=== PATIENT | male | born 1985 | race Caucasian/White ===

== ENCOUNTER 2022-12-04 11:06 | Emergency (ER) | payer OTHER ==
--- NOTE | 2022-12-04 11:25 | ERPHSYRPT ---
- History of Present Illness Time Seen by Provider: 12/04/22 11:20 Physician History: This is a 37-year-old white male patient who has complaints of numbness of his hands and feet. He also feels a little weak. He has no chest pain. Has no shortness of breath. He denies fever. He denies cough. Symptoms have been pr esent for 2 days. He has no known exposure to individuals with similar symptoms. He has never had anything like this before. He denies medication use. He denies illicit drug use. He denies alcohol use. He denies head injury. He does not have a headache. He denies neck pain. Timing/Duration: day(s) (2) Severity: mild Associated Symptoms: denies symptoms Allergies/Adverse Reactions: Penicillins Allergy (Verified 12/04/22 11:40) Travel Risk - International Travel Have you traveled outside of the country in past 3 weeks: No - Coronavirus Screening Are you exhibiting any of the following symptoms?: No Close contact with a COVID-19 positive Pt in past 14-21 Days: No - Review of Systems Constitutional: Weakness (Bilateral upper and lower extremity mild weakness) Eyes: No Symptoms Ears, Nose, & Throat: No Symptoms Respiratory: No Symptoms Cardiac: No Symptoms Abdominal/Gastrointestinal: No Symptoms Genitourinary Symptoms: No Symptoms Musculoskeletal: No Symptoms Skin: No Symptoms Neurological: Other (Mild numbness to hands and feet bilaterally), No Dizziness, No Headache Psychological: No Symptoms Endocrine: No Symptoms Hematologic/Lymphatic: No Symptoms Immunological/Allergic: No Symptoms All Other Systems: Reviewed and Negative - Past Medical History Pertinent Past Medical History: No - Past Surgical History Past Surgical History: No - Nursing Vital Signs Nursing Vital Signs: Initial Vital Signs Temperature 97.6 F 12/04/22 11:41 Pulse Rate 72 12/04/22 11:41 Respiratory Rate 18 12/04/22 11:41 Blood Pressure 138/90 12/04/22 11:41 O2 Sat by Pulse Oximetry 100 12/04/22 11:41 Pain Scale Pain Intensity 0 - Physical Exam General Appearance: no apparent distress, alert, anxiety Eye Exam: PERRL/EOMI, eyes nml inspection Ears, Nose, Throat Exam: normal ENT inspection, moist mucous membranes Neck Exam: normal inspection, non-tender, supple, full range of motion Respiratory Exam: normal breath sounds, lungs clear, airway intact, No chest tenderness, No respiratory distress Cardiovascular Exam: regular rate/rhythm, normal heart sounds, normal peripheral pulses Gastrointestinal/Abdomen Exam: soft, normal bowel sounds, No tenderness Rectal Exam: not done Back Exam: normal inspection, normal range of motion, No CVA tenderness, No vertebral tenderness Extremity Exam: normal inspection, normal range of motion, pelvis stable Neurologic Exam: alert, oriented x 3, cooperative, ict trainer II-XII nml as tested, normal mood/affect, nml cerebellar function, nml station & gait, sensation nml Skin Exam: normal color, warm, dry Lymphatic Exam: No adenopathy SpO2 Interpretation: normal O2 Delivery: Room Air - Course Nursing assessment & vital signs reviewed: Yes EKG Interpreted by Me: RATE (69), Sinus Rhythm, NORMAL AXIS, NORMAL INTERVALS, NORMAL QRS, NORMAL ST-T, Other (No acute ischemic changes on today's twelve-lead EKG) Ordered Tests: Active Orders 24 hr Category Date Time Status IV Insertion STAT Care 12/04/22 12:10 Active CBC W DIFF Stat Lab 12/04/22 11:50 Completed CMP Stat Lab 12/04/22 11:50 Completed MAG [MAGNESIUM] Stat Lab 12/04/22 11:50 Completed T4 (Thyroxine) Stat Lab 12/04/22 11:50 Completed TSH [TSH, 3RD Generation] Stat Lab 12/04/22 11:50 Completed Urine Triage Profile Stat Lab 12/04/22 12:10 Completed Medication Summary Discontinued Medications Generic Name Dose Route Start Last Admin Trade Name Suzanne PRN Reason Stop Dose Admin Sodium Chloride 1,000 mls @ 999 mls/hr 12/04/22 12:10 12/04/22 13:28 Sodium Chloride 0.9% 1000 Ml IV 12/04/22 13:10 Infused .Q1H1M STA Infusion Sodium Chloride Confirm 12/04/22 12:14 Sodium Chloride 0.9% 1000 Ml Administered 12/04/22 12:15 Dose 1,000 mls @ ud .ROUTE .[facility]-MED ONE Lab/Rad Data: Laboratory Result Diagrams 12/04/22 11:50 12/04/22 11:50 Laboratory Results 12/04/22 12/04/22 12/04/22 Range/Units 12:15 12:10 12:10 WBC (4.0-10.5) x10^3/uL RBC (4.1-5.6) x10^6/uL Hgb (12.5-18.0) g/dL Hct (42-50) % MCV (78-100) fL MCH (26-32) pg MCHC (32-36) g/dL RDW (11.5-14.0) % Plt Count (150-450) x10^3/uL MPV (7.5-11.0) fL Gran % (36.0-66.0) % Immature Gran % (Auto) (0.00-0.4) % Nucleat RBC Rel Count (0.00-0.1) % Eos # (Auto) (0-0.5) x10^3/uL Immature Gran # (Auto) (0.00-0.03) x10^3u/L Absolute Lymphs (auto) (1.0-4.6) x10^3/uL Absolute Monos (auto) (0.0-1.3) x10^3/uL Absolute Nucleated RBC (0.00-0.01) x10^3u/L Lymphocytes % (24.0-44.0) % Monocytes % (0.0-12.0) % Eosinophils % (0.00-5.0) % Basophils % (0.0-0.4) % Absolute Granulocytes (1.4-6.9) x10^3/uL Basophils # (0-0.4) x10^3/uL Sodium (137-145) mmol/L Potassium (3.5-5.1) mmol/L Chloride (98-107) mmol/L Carbon Dioxide (22-30) mmol/L Anion Gap (5-15) MEQ/L BUN (9-20) mg/dL Creatinine (0.66-1.25) mg/dL Estimated GFR ML/MIN Glucose (74-106) mg/dL Calcium (8.4-10.2) mg/dL Magnesium (1.6-2.3) mg/dL Total Bilirubin (0.2-1.3) mg/dL AST (17-59) U/L ALT (0-50) U/L Alkaline Phosphatase (38-126) U/L Serum Total Protein (6.3-8.2) g/dL Albumin (3.5-5.0) g/dL Thyroxine (T4) (5.53-10.96) ug/dL TSH 3rd Generation (0.47-4.68) mIU/L Urine Color YELLOW (YELLOW) Urine Appearance CLEAR (CLEAR) Urine pH 7.0 (5-6) Ur Specific Ignacio 1.015 (1.005-1.025) Urine Protein Cancelled POC Urine Protein Conf NEGATIVE (Negative) Urine Glucose (UA) Cancelled Urine Ketones NEGATIVE (NEGATIVE) Urine Blood Cancelled Urine Nitrite NEGATIVE (NEGATIVE) Urine Bilirubin NEGATIVE (NEGATIVE) Urine Urobilinogen 0.2 (0-1) mg/dL Ur Leukocyte Esterase Cancelled Urine Leukocytes NEGATIVE (NEGATIVE) U Hyaline Cast (Auto) NONE SEEN (0-2) /LPF Urine RBC NEGATIVE (0-5) Collin/ul Urine Microscopic RBC 0-2 (0-5) /HPF Urine Microscopic WBC 0-2 (0-5) /HPF Ur Epithelial Cells None Seen (None Seen) /HPF Urine Bacteria None Seen (None Seen) /HPF Urine Culture Reflexed NO (NO) Urine Glucose NEGATIVE (NEGATIVE) mg/dL Urine Opiates Level NEGATIVE (NEGATIVE) Ur Methadone NEGATIVE (NEGATIVE) Urine Barbiturates NEGATIVE (NEGATIVE) Ur Phencyclidine (PCP) NEGATIVE (NEGATIVE) Urine Amphetamine NEGATIVE (NEGATIVE) U Benzodiazepine Level NEGATIVE (NEGATIVE) Urine Cocaine NEGATIVE (NEGATIVE) Urine Marijuana (THC) NEGATIVE (NEGATIVE) Influenza Type A Ag NEGATIVE (NEGATIVE) Influenza Type B Ag NEGATIVE (NEGATIVE) RSV (PCR) NEGATIVE (NEGATIVE) SARS-CoV-2 (PCR) NEGATIVE (NEGATIVE) 12/04/22 12/04/22 12/04/22 Range/Units 11:50 11:50 11:50 WBC 14.8 H (4.0-10.5) x10^3/uL RBC 5.06 (4.1-5.6) x10^6/uL Hgb 15.3 (12.5-18.0) g/dL Hct 46.3 (42-50) % MCV 91.5 (78-100) fL MCH 30.2 (26-32) pg MCHC 33.0 (32-36) g/dL RDW 12.5 (11.5-14.0) % Plt Count 349 (150-450) x10^3/uL MPV 9.8 (7.5-11.0) fL Gran % 72.2 H (36.0-66.0) % Immature Gran % (Auto) 0.5 H (0.00-0.4) % Nucleat RBC Rel Count 0.0 (0.00-0.1) % Eos # (Auto) 0.70 H (0-0.5) x10^3/uL Immature Gran # (Auto) 0.07 H (0.00-0.03) x10^3u/L Absolute Lymphs (auto) 2.77 (1.0-4.6) x10^3/uL Absolute Monos (auto) 0.47 (0.0-1.3) x10^3/uL Absolute Nucleated RBC 0.00 (0.00-0.01) x10^3u/L Lymphocytes % 18.7 L (24.0-44.0) % Monocytes % 3.2 (0.0-12.0) % Eosinophils % 4.7 (0.00-5.0) % Basophils % 0.7 (0.0-0.4) % Absolute Granulocytes 10.70 H (1.4-6.9) x10^3/uL Basophils # 0.10 (0-0.4) x10^3/uL Sodium 142 (137-145) mmol/L Potassium 4.4 (3.5-5.1) mmol/L Chloride 108 H (98-107) mmol/L Carbon Dioxide 21 L (22-30) mmol/L Anion Gap 17.1 H (5-15) MEQ/L BUN 10 (9-20) mg/dL Creatinine 0.81 (0.66-1.25) mg/dL Estimated GFR > 60.0 ML/MIN Glucose 170 H (74-106) mg/dL Calcium 9.4 (8.4-10.2) mg/dL Magnesium 1.9 (1.6-2.3) mg/dL Total Bilirubin 0.50 (0.2-1.3) mg/dL AST 22 (17-59) U/L ALT 21 (0-50) U/L Alkaline Phosphatase 75 (38-126) U/L Serum Total Protein 7.9 (6.3-8.2) g/dL Albumin 4.8 (3.5-5.0) g/dL Thyroxine (T4) 10.1 (5.53-10.96) ug/dL TSH 3rd Generation 0.535 (0.47-4.68) mIU/L Urine Color (YELLOW) Urine Appearance (CLEAR) Urine pH (5-6) Ur Specific Ignacio (1.005-1.025) Urine Protein POC Urine Protein Conf (Negative) Urine Glucose (UA) Urine Ketones (NEGATIVE) Urine Blood Urine Nitrite (NEGATIVE) Urine Bilirubin (NEGATIVE) Urine Urobilinogen (0-1) mg/dL Ur Leukocyte Esterase Urine Leukocytes (NEGATIVE) U Hyaline Cast (Auto) (0-2) /LPF Urine RBC (0-5) Collin/ul Urine Microscopic RBC (0-5) /HPF Urine Microscopic WBC (0-5) /HPF Ur Epithelial Cells (None Seen) /HPF Urine Bacteria (None Seen) /HPF Urine Culture Reflexed (NO) Urine Glucose (NEGATIVE) mg/dL Urine Opiates Level (NEGATIVE) Ur Methadone (NEGATIVE) Urine Barbiturates (NEGATIVE) Ur Phencyclidine (PCP) (NEGATIVE) Urine Amphetamine (NEGATIVE) U Benzodiazepine Level (NEGATIVE) Urine Cocaine (NEGATIVE) Urine Marijuana (THC) (NEGATIVE) Influenza Type A Ag (NEGATIVE) Influenza Type B Ag (NEGATIVE) RSV (PCR) (NEGATIVE) SARS-CoV-2 (PCR) (NEGATIVE) - Progress Progress: unchanged Progress Note: 12/04/22 13:31 This patient's medical issue is 1 of moderate complexity. The level of complexity and the work-up performed is based on review of the patient's past medical history, review the patient's medication list, review of the patient's drug allergy list, history of present illness and physical findings on examination. The work-up in this patient includes placement of intravenous line, infusion of normal saline solution, twelve-lead EKG, urinalysis, urine drug screen, CBC, CMP. I reviewed the results of the work-up. The patient does have leukocytosis of unknown cause. There is no evidence of skin infection, patient denies cough. Patient denies fever. He has no abdominal pain. We will treat his leukocytosis with an antibiotic for now. Patient can use Tylenol and ibuprofen for any aches and pains and fever control. Patient is to call his primary care provider today to make arranges for follow-up appointment in the next 3 to 5 days. Counseled pt/family regarding: lab results, diagnosis, need for follow-up Medical Desision Making - Diagnostic Testing Diagnostic test were ordered, analyzed, and reviewed by me: Yes - Risk of complications The pt has a mod risk of morbidity or mortality based on: Need for prescription drug management - Departure Departure Disposition: Home Clinical Impression: Numbness and tingling in both hands, Numbness and tingling of both feet, Leukocytosis Condition: Stable Critical Care Time: No Referrals: CLINTON GAMBIN[facility] [employer] DIRECTOR [Primary Care Provider] - Follow up/PCP as directed Additional Instructions: Drink plenty of fluids. Take your antibiotics as prescribed. Use Tylenol and ibuprofen for pain and fever control. Call your primary care doctor today to make arranges for follow-up appointment in the next 3 to 5 days. Prescriptions: Ciprofloxacin [Cipro 500 MG] 500 mg PO BID #14 tablet
[2022-12-04 11:55] VITALS: TEMP 97.6
[2022-12-04] MEDS ORDERED: Sodium Chloride 0.9% 1000 ML 1,000 ML IV STA (12:10)
[2022-12-04] MEDS ORDERED: Sodium Chloride 0.9% 1000 ML 1,000 ML ONE (12:14)
[2022-12-04 12:23] LABS: BASOPHIL % 0.7 % (0.0-0.4); Eosinophil % 4.7 % (0.00-5.0); Hematocrit 46.3 % (42-50); Hemoglobin 15.3 g/dL (12.5-18.0); IMMATURE GRAN # 0.07 x10^3u/L (0.00-0.03); IMMATURE GRAN % 0.5 % (0.00-0.4); Lymphocyte (Absolute #) 2.77 x10^3/uL (1.0-4.6); Lymphocytes % 18.7 % (24.0-44.0); Mean Cell Volume 91.5 fL (78-100); Mean Corpuscular Hemoglobin 30.2 pg (26-32); Mean Platelet Volume 9.8 fL (7.5-11.0); Monocyte (Absolute #) 0.47 x10^3/uL (0.0-1.3); Monocytes % 3.2 % (0.0-12.0); Neutrophil % 72.2 % (36.0-66.0); Platelet Count 349 x10^3/uL (150-450); Red Blood Count 5.06 x10^6/uL (4.1-5.6); Red Cell Distribution Width 12.5 % (11.5-14.0); White Blood Count 14.8 x10^3/uL (4.0-10.5)
[2022-12-04 12:41] LABS: ALBUMIN 4.8 g/dL (3.5-5.0); ALKALINE PHOSPHATASE 75 U/L (38-126); ANION GAP 17.1 MEQ/L (5-15); BLOOD UREA NITROGEN 10 mg/dL (9-20); CHLORIDE 108 mmol/L (98-107); Calcium 9.4 mg/dL (8.4-10.2); Carbon Dioxide 21 mmol/L (22-30); Creatinine 1 0.81 mg/dL (0.66-1.25); EST GLOMERULAR FILTRATION RATE > 60.0 ML/MIN; Glucose 170 mg/dL (74-106); MAGNESIUM 1.9 mg/dL (1.6-2.3); Potassium 4.4 mmol/L (3.5-5.1); SGOT/AST 22 U/L (17-59); SGPT/ALT 21 U/L (0-50); SODIUM 142 mmol/L (137-145); Total Protein 7.9 g/dL (6.3-8.2)
[2022-12-04 13:08] LABS: Appearance CLEAR (CLEAR); Bilirubin NEGATIVE (NEGATIVE); Glucose NEGATIVE (NEGATIVE)
[2022-12-04 13:09] LABS: Ketones NEGATIVE (NEGATIVE); Nitrite NEGATIVE (NEGATIVE); Protein,Urine Dip NEGATIVE (Negative); RBC NEGATIVE Ery/ul (0-5); Specific Gravity 1.015 (1.005-1.025); Urobilinogen 0.2 mg/dL (0-1)
[2022-12-04 13:12] LABS: T4 (Thyroxine) 10.1 ug/dL (5.53-10.96); TSH, 3RD Generation 0.535 mIU/L (0.47-4.68)
[2022-12-04 13:13] LABS: INFLUENZA A NEGATIVE (NEGATIVE); INFLUENZA B NEGATIVE (NEGATIVE); RESPIRATORY SYNCTIAL VIRUS NEGATIVE (NEGATIVE); SARS-CoV-2 Xpert Express NEGATIVE (NEGATIVE)
[2022-12-04 13:19] LABS: Bacteria None Seen /HPF (None Seen); Epithelial Cells None Seen /HPF (None Seen); Hyaline Casts NONE SEEN /LPF (0-2); RBC 0-2 /HPF (0-5); WBC 0-2 /HPF (0-5)
[2022-12-04 13:21] LABS: ADD URINE CULTURE? NO (NO)
[2022-12-04 13:53] VITALS: RESP 16
[2022-12-04 14:06] LABS: Amphetamine,Urine NEGATIVE (NEGATIVE); Barbiturate,Urine NEGATIVE (NEGATIVE); Benzodiazepine,Urine NEGATIVE (NEGATIVE); Cocaine,Urine NEGATIVE (NEGATIVE); Methadone,Urine NEGATIVE (NEGATIVE); Opiate,Urine NEGATIVE (NEGATIVE); PCP,Urine NEGATIVE (NEGATIVE); THC,Urine NEGATIVE (NEGATIVE)
[2022-12-04 14:28] VITALS: BP 137/89; PULSE 72; O2SAT 98
== END 2022-12-04 14:32 | disposition home or self-care (01) ==
LOC: ED 11:06
DX: R20.2 Paresthesia of skin (principal); D72.829 Elevated white blood cell count, unspecified
CPT/HCPCS: 0241U; 36000; 36415; 80053; 80307; 81015; 83735; 84436; 84443; 85025; 96360; 99284

== ENCOUNTER 2025-01-09 12:15 | Emergency (ER) | payer OTHER ==
[2025-01-09 12:29] VITALS: TEMP 98.3
--- NOTE | 2025-01-09 12:30 | ERPHSYRPT ---
- History of Present Illness Time Seen by Provider: 01/09/25 12:20 Source: patient Physician History: This 39-year-old male states he has been having episodes of shortness of breath for the past month. He states that occasionally he gets pain in his left anterior tibia with ankle swelling which is not occurring today. He denies any chest pain. No cough. No fever or chills. He is not a smoker. Denies asthma or COPD. No history of CHF. No personal or family history of thromboembolic disease. Patient currently has mild shortness of breath. He is around a lot of "mold" at home and work. Allergies/Adverse Reactions: Penicillins Allergy (Verified 12/04/22 11:40) Hx Tetanus, Diphtheria Vaccination/Date Given: Yes Hx Influenza Vaccination/Date Given: No Hx Pneumococcal Vaccination/Date Given: No - Review of Systems All Other Systems: Reviewed and Negative (As per HPI otherwise negative) - Past Medical History Pertinent Past Medical History: No - Past Surgical History Past Surgical History: No - Social History Smoking Status: Current every day smoker How long have you smoked: 23 years Exposure to second hand smoke: Yes Drug Use: none Patient Lives Alone: No - Nursing Vital Signs Nursing Vital Signs: Initial Vital Signs Temperature 98.3 F 01/09/25 12:24 Pulse Rate 78 01/09/25 12:24 Respiratory Rate 20 01/09/25 12:24 Blood Pressure 144/88 01/09/25 12:24 O2 Sat by Pulse Oximetry 99 01/09/25 12:24 Pain Scale Pain Intensity 0 - Physical Exam Comments: 01/09/25 12:30 General: Well-nourished well-developed. No apparent distress. HEENT: Normocephalic atraumatic no obvious facial or neck deformity or injury. 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 Neck: Supple. No deformity or mass noted. CV: RRR NL Perfusion. No edema Resp: No Respiratory distress or adventitious breath sounds Abd: ND SNT MSK: No deformity or TTP. No calf or ankle pain or swelling. Negative Homans' sign. No erythema or edema. Neuro: Alert and [place] x4. No gross focal neurologic changes Psych: No SI, HI or grave disability Ordered Tests: Active Orders 24 hr Category Date Time Status EKG-ER Only STAT Care 01/09/25 12:30 Active CHEST 2 VIEWS (PA AND LAT) Stat Exams 01/09/25 12:31 Completed BNPII [NT PRO BNPII] Stat Lab 01/09/25 12:45 Completed CBC W DIFF Stat Lab 01/09/25 12:45 Completed CMP Stat Lab 01/09/25 12:45 Completed D-DIMER QUANTITATIVE Stat Lab 01/09/25 12:45 Completed MAGNESIUM Stat Lab 01/09/25 12:45 Completed TROPONIN Q4H Lab 01/09/25 12:45 Completed TSH [TSH, 3RD Generation] Stat Lab 01/09/25 12:45 Completed Respiratory Therapy Assessment DAILY RT 01/09/25 12:57 Active Medication Summary Discontinued Medications Generic Name Dose Route Start Last Admin Trade Name Freq PRN Reason Stop Dose Admin Albuterol/Ipratropium 3 ml 01/09/25 12:33 01/09/25 12:53 Ipratropium/Albuterol Sulfate 3 Ml Ampul.Neb IH 01/09/25 12:34 3 ml STAT ONE Administration Albuterol/Ipratropium Confirm 01/09/25 12:43 Ipratropium/Albuterol Sulfate 3 Ml Ampul.Neb Administered 01/09/25 12:44 Dose 3 ml IH .STK-MED ONE Prednisone 60 mg 01/09/25 12:32 01/09/25 13:03 Prednisone 20 Mg Tablet PO 01/09/25 12:33 60 mg STAT ONE Administration Prednisone Confirm 01/09/25 13:02 Prednisone 20 Mg Tablet Administered 01/09/25 13:03 Dose 60 mg .ROUTE .STK-MED ONE 1239 EKG normal sinus rhythm without any significant ischemic changes. Appears to have J-point changes inferior leads without reciprocal depression. Negative D-dimer. Negative troponin. Lab/Rad Data: Laboratory Result Diagrams 01/09/25 12:45 01/09/25 12:45 Laboratory Results 01/09/25 01/09/25 01/09/25 Range/Units 12:45 12:45 12:45 WBC (4.23-9.07) x10^3/uL RBC (4.63-6.08) x10^6/uL Hgb (13.7-17.5) g/dL Hct (40.1-51.0) % MCV (79.0-92.2) fL MCH (25.7-32.2) pg MCHC (32.3-36.5) g/dL RDW (11.6-14.4) % Plt Count (163-337) x10^3/uL MPV (9.4-12.4) fL Gran % (34.0-67.9) % Immature Gran % (Auto) (0.001-0.429) % Nucleat RBC Rel Count (0.00-0.2) % Eos # (Auto) (0.04-0.54) x10^3/uL Immature Gran # (Auto) (0.001-0.031) x10^3u/L Absolute Lymphs (auto) (1.32-3.57) x10^3/uL Absolute Monos (auto) (0.30-0.82) x10^3/uL Absolute Nucleated RBC (0.00-0.012) x10^3u/L Lymphocytes % (21.8-53.1) % Monocytes % (5.3-12.2) % Eosinophils % (0.8-7.0) % Basophils % (0.2-1.2) % Absolute Granulocytes (1.78-5.38) x10^3/uL Basophils # (0.01-0.08) x10^3/uL D-Dimer 0.43 (0.0-0.50) mg/L Sodium (135-145) mmol/L Potassium (3.5-5.1) mmol/L Chloride (98-107) mmol/L Carbon Dioxide (22-30) mmol/L Anion Gap (5-15) MEQ/L BUN (9-20) mg/dL Creatinine (0.66-1.25) mg/dL Estimated GFR ML/MIN Glucose (74-106) mg/dL Calcium (8.4-10.2) mg/dL Magnesium 1.8 (1.6-2.3) mg/dL Total Bilirubin (0.2-1.3) mg/dL AST (17-59) U/L ALT (0-50) U/L Alkaline Phosphatase (38-126) U/L Troponin I < 0.012 (0.000-0.033) ng/mL NT-Pro-B Natriuret Pep (<300) pg/mL Serum Total Protein (6.3-8.2) g/dL Albumin (3.5-5.0) g/dL TSH 3rd Generation 1.001 (0.470-4.680) mIU/L 01/09/25 01/09/25 Range/Units 12:45 12:45 WBC 11.3 H (4.23-9.07) x10^3/uL RBC 4.82 (4.63-6.08) x10^6/uL Hgb 14.7 (13.7-17.5) g/dL Hct 43.8 (40.1-51.0) % MCV 90.9 (79.0-92.2) fL MCH 30.5 (25.7-32.2) pg MCHC 33.6 (32.3-36.5) g/dL RDW 11.9 (11.6-14.4) % Plt Count 323 (163-337) x10^3/uL MPV 9.2 L (9.4-12.4) fL Gran % 66.1 (34.0-67.9) % Immature Gran % (Auto) 0.3 (0.001-0.429) % Nucleat RBC Rel Count 0.0 (0.00-0.2) % Eos # (Auto) 0.43 (0.04-0.54) x10^3/uL Immature Gran # (Auto) 0.03 (0.001-0.031) x10^3u/L Absolute Lymphs (auto) 2.77 (1.32-3.57) x10^3/uL Absolute Monos (auto) 0.52 (0.30-0.82) x10^3/uL Absolute Nucleated RBC 0.00 (0.00-0.012) x10^3u/L Lymphocytes % 24.5 (21.8-53.1) % Monocytes % 4.6 L (5.3-12.2) % Eosinophils % 3.8 (0.8-7.0) % Basophils % 0.7 (0.2-1.2) % Absolute Granulocytes 7.46 H (1.78-5.38) x10^3/uL Basophils # 0.08 (0.01-0.08) x10^3/uL D-Dimer (0.0-0.50) mg/L Sodium 138 (135-145) mmol/L Potassium 4.0 (3.5-5.1) mmol/L Chloride 106 (98-107) mmol/L Carbon Dioxide 22 (22-30) mmol/L Anion Gap 14 (5-15) MEQ/L BUN 14 (9-20) mg/dL Creatinine 0.89 (0.66-1.25) mg/dL Estimated GFR 113.2 ML/MIN Glucose 113 H (74-106) mg/dL Calcium 9.4 (8.4-10.2) mg/dL Magnesium (1.6-2.3) mg/dL Total Bilirubin 0.30 (0.2-1.3) mg/dL AST 29 (17-59) U/L ALT 34 (0-50) U/L Alkaline Phosphatase 79 (38-126) U/L Troponin I (0.000-0.033) ng/mL NT-Pro-B Natriuret Pep < 20.0 (<300) pg/mL Serum Total Protein 8.1 (6.3-8.2) g/dL Albumin 4.6 (3.5-5.0) g/dL TSH 3rd Generation (0.470-4.680) mIU/L - Progress Progress Note: 01/09/25 14:54 Patient doing well. He is greatly improved. Negative D-dimer, BNP, cardiac markers and EKG. Labs essentially unremarkable. Chest x-ray unremarkable. Patient exposed to mold and dust. Will give outpatient prednisone and albuterol. Patient is asking for primary care physician and we will provide referral number. The patient's condition was discussed with themselves and/or family members in great detail. Precautions are given and need to return or call 911 immediately for any changes or worsening are discussed. Instructions on patient's condition and noting that conditions can change or worsen and that diagnosis are presumptive and can evolve are discussed. All questions were answered. All concerns addressed at this time 01/09/25 14:54 01/09/25 14:57 - Departure Departure Disposition: Home Clinical Impression: Numbness and tingling of both feet Dyspnea Qualifiers: Dyspnea type: unspecified Qualified Code(s): R06.00 - Dyspnea, unspecified Condition: Stable Critical Care Time: No Referrals: DOCTOR,NO FAMILY [Primary Care Provider, UNKNOWN] - Follow up/PCP as directed Referral Note: List of providers given Instructions: Shortness of Breath (Dyspnea) (DC) Additional Instructions: You have been evaluated for an emergency medical condition. At this time, given the current history and events presented, the examination conducted and any possible testing you may have had, you have been given a presumptive diagnosis based on the current information is obtained. Your discharge diagnosis is presumptive and not necessarily definitive. Medical conditions present in various stages very often without all the symptoms or findings described in medical literature. Other symptoms, concerns or conditions may arise and your diagnoses may evolve or change and/or your condition could potentially worsen after the time of disposition or discharge. You have been given a presumptive diagnosis and your condition appears to be stable, but your medical issues can change or worsen. If there is worsening of your condition including difficulty breathing, swallowing, speaking, chest pain or pressure, intractable vomiting, worsening or changing mental status, numbness, tingling or weakness of your body or arms or legs, thoughts or plans of harming yourself or others, or any other concerns, call 911 and/or return immediately to the closest emergency department. It is important you follow-up with your doctor on the next business day. Call your doctor, or the referral provided if you do not have a doctor, when they open to schedule a follow-up appointment in the next 1 or latest 2 days. Please refer to the attached sheet. If you do not have primary care doctor, you can call the [facility] referral line at [phone]. Return immediately if your symptoms worsen or if you are unable to obtain further care. My team and I thank you for choosing the [facility] Emergency Department emergency healthcare needs. We wish you a speedy recovery. Very respectfully, Dr. Leah Bergeron M.D. [employer] Board-certified Emergency Physician Prescriptions: Albuterol Sulfate [Albuterol Sulfate Hfa] 8.5 gm IH Q6HPRN PRN #1 inh PRN Reason: Cough Prednisone 20 mg [Deltasone 20 mg] 40 mg PO DAILY 5 Days #10 tablet Albuterol 8 gm Mdi Hfa [Ventolin Hfa MDI] See Rx Instructions .ROUTE .COMPLEX PRN #1 PRN Reason: Shortness Of Breath
[2025-01-09] MEDS ORDERED: DUONEB 0.5-3 MG/3 ml Neb IH ONE (12:43)
[2025-01-09 12:50] LABS: BASOPHIL % 0.7 % (0.2-1.2); Basophil (Absolute #) 0.08 x10^3/uL (0.01-0.08); Eosinophil (Absolute #) 0.43 x10^3/uL (0.04-0.54); Hematocrit 43.8 % (40.1-51.0); Hemoglobin 14.7 g/dL (13.7-17.5); IMMATURE GRAN # 0.03 x10^3u/L (0.001-0.031); IMMATURE GRAN % 0.3 % (0.001-0.429); Lymphocyte (Absolute #) 2.77 x10^3/uL (1.32-3.57); Mean Corpuscular Hemoglobin 30.5 pg (25.7-32.2); Mean Corpuscular Hgb Concent. 33.6 g/dL (32.3-36.5); Monocyte (Absolute #) 0.52 x10^3/uL (0.30-0.82); NUCLEATED RBC # 0.00 x10^3u/L (0.00-0.012); NUCLEATED RBC % 0.0 % (0.00-0.2); Platelet Count 323 x10^3/uL (163-337); Red Blood Count 4.82 x10^6/uL (4.63-6.08); White Blood Count 11.3 x10^3/uL (4.23-9.07)
[2025-01-09] MEDS: DUONEB 0.5-3 MG/3 ml Neb IH ONE (12:53)
[2025-01-09] MEDS ORDERED: DELTASONE 20 MG ONE (13:02)
--- NOTE | 2025-01-09 13:02 | XRAY ---
Indication: Cough. Comparison: None PA/lateral chest demonstrates normal heart, lungs, and bony thorax.
[2025-01-09] MEDS: DELTASONE 20 MG PO ONE (13:03)
[2025-01-09 13:39] LABS: Calcium 9.4 mg/dL (8.4-10.2); Carbon Dioxide 22 mmol/L (22-30); Creatinine 1 0.89 mg/dL (0.66-1.25); EST GLOMERULAR FILTRATION RATE 113.2 ML/MIN; Glucose 113 mg/dL (74-106); NT PRO BNPII < 20.0 pg/mL (<300); Potassium 4.0 mmol/L (3.5-5.1); SGOT/AST 29 U/L (17-59); SGPT/ALT 34 U/L (0-50); Total Protein 8.1 g/dL (6.3-8.2)
[2025-01-09 15:03] VITALS: BP 132/69; PULSE 68; RESP 21; O2SAT 100
== END 2025-01-09 15:19 | disposition home or self-care (01) ==
LOC: ED 12:15
DX: R06.00 Dyspnea, unspecified (principal); R20.2 Paresthesia of skin; Z79.52 Long term (current) use of systemic steroids; Z79.899 Other long term (current) drug therapy; Z72.0 Tobacco use